=== PATIENT | female | born 1955 | race Two or more races ===

== ENCOUNTER 2024-07-04 21:27 | Emergency (ER) | payer OTHER, MEDICAID, SELFPAY ==
[2024-07-04 21:28] VITALS: BMI 31.1
[2024-07-04 21:45] VITALS: BP 173/83; PULSE 83; RESP 16; TEMP 37; O2SAT 97
--- NOTE | 2024-07-04 21:50 | EDRME_ITS ---
Rapid Medical Screening Exam [facility] Arrival date/time: 07/04/24 21:27 Chief Complaint: Chest Pain Vital signs: Vital Signs Temperature 98.6 F 07/04/24 21:45 Pulse Rate 83 07/04/24 21:45 Respiratory Rate 16 07/04/24 21:45 Blood Pressure 173/83 H 07/04/24 21:45 Pulse Oximetry (%) 97 07/04/24 21:45 Oxygen Delivery Method Room Air 07/04/24 21:45 [facility] Narrative: RUQ pain radiating to right back started today. No n/v. No rash. Hx michele long time ago.
--- NOTE | 2024-07-04 21:51 | EKG_ITS ---
[facility] Test Date: 2024-07-04 Pat Name: FE ALSTON Department: Room: - Gender: Female Speech Language Specialist: : [id number] Requested By: Isaac Zamudio Order Number: [id number] Reading MD: Isaac Zamudio Measurements Intervals [place] Rate: 89 P: 14 MO: 146 QRS: -25 QRSD: 81 T: 12 QT: 337 QTc: 411 Interpretive Statements SINUS RHYTHM BORDERLINE LEFT AXIS DEVIATION [QRS AXIS < -20] LOW QRS VOLTAGE IN PRECORDIAL LEADS [QRS DEFLECTION < 1.0 mV IN CHEST LEADS] PATTERN CONSISTENT WITH PULMONARY DISEASE MODERATE VOLTAGE CRITERIA FOR LVH, CONSIDER NORMAL VARIANT [MEETS CRITERIA IN ONE OF: R(aVL), S(V1), R(V5), R(V5/V6)+S(V1)] No previous ECG available for comparison /store/S0/[id number].pdf
--- NOTE | 2024-07-04 21:53 | XR_ITS ---
Examination: CT abdomen and pelvis without contrast. Coronal 3-D reconstructions. Sagittal 2-D reconstructions. Date and time of exam:July 05, 2024 at 0003 hours Comparison January 13, 2024 INDICATIONS: Right-sided chest and flank pain radiating to the back beginning 2 days ago CTDI: vol (mGy): 9.26 DLP: (mGycm): 490 Technique: Axial images of the abdomen have been obtained, 3 mm slice thickness Intravenous contrast material has not been administered. Low dose protocols were performed. One or more of the following dose reduction techniques were used; automated exposure control, adjustment of the mA and/or KV according to patient size, use of iterative reconstruction technique. Findings: Fatty infiltration throughout the liver, no focal liver or splenic lesion Absent gallbladder No pancreatic or adrenal mass Severe scarring right kidney with 2 mm right renal calculus Mild wall thickening right pelvicalyceal system and right ureter although no hydronephrosis or ureteral calculi Small lymph nodes in the right lower mesentery Normal appendix 29 mm fat-containing umbilical hernia No bowel obstruction Enlarged fundus of the uterus Urinary bladder wall thickening up to 5 mm Advanced degenerative disc disease lower 4 lumbar levels impression: Severe scarring right kidney 2 mm nonobstructing right renal calculus Findings most consistent with right pyelonephritis Consider pelvic sonography to assess enlarged fundus of the uterus
[2024-07-04 22:46] LABS: Collection Type, Urine Clean Catch
[2024-07-04 22:53] LABS: Basophils # (Auto) 0.1 Thou/mm3 (0.0-0.2); Basophils % (Auto) 1 % (0-2.5); Eosinophils # (Auto) 0.1 Thou/mm3 (0.0-0.5); Eosinophils % (Auto) 1 % (0-10); Hematocrit 39.2 % (36.0-46.0); Hemoglobin 13.4 g/dL (12.0-16.0); Immature Granulocytes % (Auto) 0 % (0-0); Immature Granulocytes Auto 0.03 Thou/mm3 (0.00-0.00); Lymphocytes # (Auto) 2.4 Thou/mm3 (1.0-4.8); Lymphocytes % (Auto) 31 % (10-50); Mean Corpuscular HGB Conc 34.2 g/dl (31.0-37.0); Mean Corpuscular Hemoglobin 32.1 pg (25.0-35.0); Mean Corpuscular Volume 94 fL (80-100); Monocytes # (Auto) 0.4 Thou/mm3 (0.0-0.8); Monocytes % (Auto) 5 % (0-12); Neutrophils # (Auto) 4.7 Thou/mm3 (1.8-7.7); Neutrophils % (Auto) 62 % (37-80); Nucleated Red Blood Cell % 0 /100 WBC (0); Platelet Count 350 Thou/mm3 (140-440); RDW Standard Deviation 41.6 fL (36.4-46.3); Red Blood Count 4.18 Miln/mm3 (4.00-5.20); White Blood Count 7.7 Thou/mm3 (3.6-11.0)
[2024-07-04 22:56] LABS: Bilirubin,Urine Negative (Negative); Blood,Urine Negative (Negative); Clarity,Urine Clear (Clear/Hazy); Color,Urine Colorless (Lt Yel-Yel); Glucose, Urine Negative (Negative); Ketones,Urine Negative (Negative); Leukocyte Esterase,Urine Negative (Negative); Nitrite,Urine Negative (Negative); PH,Urine 6.5 (5.0-7.0); Protein,Urine Negative (Neg - Trace); RBC,Urine 2 /hpf (0-3); Specific Gravity,Urine 1.009 (1.001-1.035); Squamous Epithelial Cell,Urine < 1 /hpf (0-5); Urobilinogen,Urine Negative mg/dL (0.0-1.0); WBC,Urine 1 /hpf (0-5)
[2024-07-04 23:14] LABS: Alanine Aminotransferase 23 U/L (10-49); Albumin, Serum 4.6 gm/dL (3.4-4.8); Albumin/Globulin Ratio 1.6 (1.2-2.2); Alkaline Phosphatase 108 U/L (46-116); Anion Gap 9 (7-16); Aspartate Amino Transferase 13 U/L (0-34); BUN/Creatinine Ratio 21 Ratio (12-20); Bilirubin,Total 0.5 mg/dL (0.3-1.2); Blood Urea Nitrogen 17 mg/dL (9-23); Calcium 9.8 mg/dL (8.3-10.6); Calcium (Corrected) 9.8 mg/dL (8.5-10.1); Carbon Dioxide 23.8 mMol/L (20.0-31.0); Chloride 106 mMol/L (98-107); Creatinine (Component) 0.8 mg/dL (0.6-1.3); Estimated Creatinine Clearance 62.3 mL/min (>60); Globulin 2.8 gm/dL (2.3-3.5); Glucose 105 mg/dL (74-106); Lipase 71 U/L (12-53); Osmolality,Calculated 279 (275-295); Potassium 3.3 mMol/L (3.4-5.1); Sodium 139 mMol/L (136-145); Total Protein 7.4 gm/dL (5.7-8.2); Troponin I < 0.002 ng/mL (0.0-0.045); eGFR > 60 See Note
[2024-07-04 23:23] VITALS: BP 126/80; PULSE 80; RESP 20; TEMP 36.9; O2SAT 98
[2024-07-05 01:00] VITALS: BP 115/71; PULSE 79; RESP 20; TEMP 36.9; O2SAT 96
--- NOTE | 2024-07-05 01:08 | PC.NURSE ---
NOTIFIED PT WANTING PAIN MEDICATION
--- NOTE | 2024-07-05 01:25 | PRELIM_ITS ---
CT scan of the abdomen and pelvis without intravenous contrast (axial sections with sagittal and coronal reformats) July 05, 2024 at 0003 hours Clinical History: Right flank pain. Comparison: No prior study is available for comparison. Findings: The gallbladder is surgically absent. The right kidney demonstrates scarring with parenchymal calcification in upper pole. No evidence of renal/ureteric calculus or hydroureteronephrosis. The liver, pancreas, spleen, left kidney and adrenals are unremarkable on this noncontrast study. No evidence of bowel obstruction. A moderate amount of fecal material is present in the colon. The appendix is within normal limits (coronal images 78- 80/169). There is no mesenteric or retroperitoneal adenopathy. The urinary bladder is partially distended and shows mild wall thickening; possibility of cystitis cannot be excluded. The uterus is enlarged and demonstrates lobulated contour, likely related to fibroid. There is no free fluid or free air. A small fat-containing umbilical hernia is present. The bones are osteopenic. Degenerative changes are identified in the spine. There is grade I anterolisthesis of L5 on S1, likely degenerative. Bibasilar dependent atelectasis is present. Please note that evaluation of soft tissue/vascular structures and bowel loops is limited due to absence of IV and oral contrast. Impression: 1. No evidence of renal/ureteric calculus or hydroureteronephrosis. 2. Partially distended urinary bladder with mild wall thickening; possibility of cystitis cannot be excluded. 3. Enlarged uterus as described. Recommend further evaluation with sonography, if clinically indicated. 4. Other findings as described above. Suggest clinical correlation and follow up accordingly. Report Electronically Signed By: Caleb Paz 07/05/2024 1:24:59 AM [EST]
[2024-07-05 03:00] VITALS: BP 157/92; PULSE 81; RESP 16; TEMP 36.9; O2SAT 97
[2024-07-05] MEDS: KETOROLAC INJ 30 MG/ML VIAL 15 MG IVP (03:33)
--- NOTE | 2024-07-29 03:39 | EDNOTE_ITS ---
ED Chest Pain RME/HPI General Chief Complaint: Chest Pain Stated Complaint: RT CHEST PAIN RAD TO RT SIDED BACK Source: patient and RN notes reviewed Arrival date/time: 07/04/24 21:27 Mode of arrival: ambulatory Limitations: no limitations and language barrier RME / HPI RME / HPI narrative: RUQ pain radiating to right back started today. No n/v. No rash. Hx michele long time ago. MD complaint: chest pain Onset (ago): day(s) (2) Duration: intermittent Pain location: left chest Severity: mild Severity scale (1-10): 2 Quality: tightness Pain radiation: none Relieving factors: nothing Exacerbating factors: nothing Associated symptoms: nausea Treatments prior to arrival chest pain: none Related Data Previous Rx's ?Medication ?Instructions ?Recorded TRIMETHOPRIM/SULFAMETHOXAZOLE 1 tab PO Q12HR Infection #14 tabs 03/27/16 (Bactrim Ds) Allergies Allergy/AdvReac Type Severity Reaction Status Date / Time codeine Allergy Mild FAINT Verified 07/04/24 21:31 Review of Systems Review of Systems Systems Reviewed: All systems reviewed, normal except as documented Constitutional Constitutional: Reports system reviewed and no additional complaints, except as documented and Denies fever(s) Eyes Eyes: Reports system reviewed and no additional complaints, except as documented ENT Ears, Nose, Mouth, and Throat: Reports system reviewed and no additional complaints, except as documented Respiratory Respiratory: Reports system reviewed and no additional complaints, except as documented and Denies wheezing Gastrointestinal Gastrointestinal: Reports system reviewed and no additional complaints, except as documented, Denies abdominal pain, Denies nausea and Denies vomiting Musculoskeletal Musculoskeletal: Reports system reviewed and no additional complaints, except as documented, Denies abnormal gait and Denies arthralgias Integumentary/Breasts Skin/Breast: Reports system reviewed and no additional complaints, except as documented and Denies rash Neurologic Neurologic: Reports system reviewed and no additional complaints, except as documented and Denies abnormal gait Psychiatric Psychiatric: Reports system reviewed and no additional complaints, except as documented Allergic/Immunologic Allergic/Immunologic: Denies wheezing Past Medical History Past Medical History NEUROLOGIC: Negative Neurological Disorders CARDIAC: Positive Hypercholesterolemia and Hypertension; Negative Congestive Heart Failure RESPIRATORY: Negative Chronic Obstructive Pulmonary Disease (COPD) GASTROINTESTINAL: Negative Gastrointestinal Disorders GENITOURINARY: Negative Genitourinary Disorders or Renal Disease ENDOCRINE: Negative Diabetes Mellitus Type 1 or Diabetes Mellitus Type 2 Social History SMOKING STATUS: Never smoker ED Exam General Limitations: Present no limitations and language barrier General appearance: Present alert and in no apparent distress Head Head exam: Present atraumatic Eye Eye exam: Present normal appearance, PERRL and EOMI ENT ENT exam: Present normal exam, normal oropharynx and mucous membranes moist Neck Neck exam: Present normal inspection, full ROM and trachea midline Chest Chest inspection: Present normal inspection and symmetric chest wall rise Respiratory Respiratory exam: Present normal lung sounds bilaterally Cardiovascular Cardiovascular exam: Present regular rate, normal rhythm and normal heart sounds Abdominal Exam Abdominal exam: Present soft and normal bowel sounds Extremities Exam Extremities exam: Present normal inspection and full ROM Back Exam Back exam: Present normal inspection and full ROM Neurological Exam Neurological exam: Present alert, oriented X3 and CN II-XII intact Psychiatric Psychiatric exam: Present normal affect and normal mood Skin Skin exam: Present warm, dry, intact and normal color Course Quality Measures none Orders Category Date Time Status Steam Generating Powerplant Mechanic Q4H START 00 Care 07/04/24 22:20 Completed EKG (ED ONLY) *Do not use* NOW Care 07/04/24 21:51 Completed Insert IV NOW Care 07/04/24 22:[address] abdomen pelvis wo con Stat Exams 07/04/24 21:53 Completed EKG (ED Only) Stat Exams 07/04/24 21:51 Draft CBC Stat Lab 07/04/24 22:35 Completed CMP [Comprehensive Metabolic Panel] Stat Lab 07/04/24 22:35 Completed Lipase Stat Lab 07/04/24 22:35 Completed Troponin I Stat Lab 07/04/24 22:35 Completed UA [Urinalysis] Stat Lab 07/04/24 22:09 Completed Ketorolac Inj [Toradol Inj] Med 07/05/24 03:00 Discontinued 15 mg IVP X1 ONE Vital Signs Vital signs: Vital Signs Temperature 98.6 F 07/04/24 21:45 Pulse Rate 83 07/04/24 21:45 Respiratory Rate 16 07/04/24 21:45 Blood Pressure 173/83 H 07/04/24 21:45 Pulse Oximetry (%) 97 07/04/24 21:45 Oxygen Delivery Method Room Air 07/04/24 21:45 Chest Pain Patient data External records reviewed:: [facility] previous records Clinical information provided by:: patient Social determinants that could affect healthcare access:: none Patient has the following chronic illnesses:: none How is presenting disease/condition affected by chronic disease/condition?: no chronic disease Evaluation data The following diagnostics were reviewed and interpreted by me:: lab results, radiology exam(s) and EKG tracing(s) Lab and/or radiology exams considered but not ordered:: None Interpretation Summary: None Medications / Prescriptions Medications or Prescriptions considered but not ordered:: None Medication administrations:: Medication Administration History Discontinued Medications Ketorolac Tromethamine (Ketorolac Inj 30 Mg/Ml Vial) 15 mg IVP X1 ONE Stop: 07/05/24 03:01 Last Admin: 07/05/24 03:33 Dose: 15 mg Documented By: MAYI none Consultations Consultation(s) initiated? (list below): No Diagnosis Chest Pain Differential Diagnosis: atypical chest pain, biliary colic and other Most likely diagnosis given after review of the tests above:: Atypical chest pain Admission Indicated Admission indicated?: not indicated Admission Request Was there a request for admission?: No Disposition Plan Disposition Plan: Discharge Discharge Attestation Discharge Attestation: The patient and all family members were given an opportunity to ask questions and understood the discharge instructions. Discharge instructions specifically effects, indications for sooner follow up or return to the emergency department, and the expected course of current diagnosis. Patient condition: Stable Discharge Plan Plan Patient Disposition: HOME (Self Care) Patient condition on transfer: Stable Prescriptions/Referrals Prescriptions/Med Rec: No Action TRIMETHOPRIM/SULFAMETHOXAZOLE (Bactrim Ds) 1 TAB tablet 1 tab PO Q12HR Qty: 14 0RF Referrals: No Primary/Family,Physician [Primary Care Provider] - In 1 week Problem List Clinical Impression: Abdominal pain Patient/Caregiver Discharge Instructions Diet Instructions: Avoid greasy or fatty foods. Education Materials: Abdominal Pain Additional Instructions: General Adult Discharge Instructions(Z[place]ian) Usted lujan sido dado de susan del [facility] sin embargo hay algunas cosas que debe hacer para asegurarse de que usted continue recibiendo el cuidado adecuado. Por favor janett las siguientes instrucciones con atenci?n: 1. Si es que le dieron alguna prescripci?n (medicamento), asegurese de ir a la farmacia de holden preferencia, llenar el medicamento y tomarlo conforme a las instrucciones. 2. Leas las instrucciones de susan con mucho cuidado dado que contienen informaci?n importante para holden peggy y cuidado. 3. REGRESE AL [facility]ENTO DE EMERGENCIA SI tiene alg?n tipo de problema o preocupaci?n. [place]oggon incluye pawan no esta limitado a fiebre, mucho dolor abdominal, dolor de pecho, mucho dolor de richard, falta de aire, sangrado incontrolable, nauseas o vomitos incontrolables, inhabilidad de tolerar alimentos, o cualquier otro tipo de condici?n que le amol cuestionar holden peggy. 4. Asegurese de seguir con holden medico primario (tambien llamado medico de bashir) o con el medico especialista que le indicaron al momento del susan en 3 a 5 negron dado que esta es la mejor manera de asegurar que aneta recibiendo el mejor cuidado medico. 5. Si es que tiene un telefono inteligente (smartphone) revise la pagina web o aplicaci?n GoodRx antes de pagar por george prescripciones (medicinas) dado que asi podr?a encontrar un cup?n para que george medicinas pal menos costosas. El servicio es gratuito. Le agradecemos holden visita el andres de hoy y esperamos que holden peggy mejore. Print Language: Z[place]ian Stand Alone Forms: Dorothy Award Info., Patient Portal Info Letter
== END 2024-07-05 03:38 | disposition home or self-care (01) ==
PROVIDERS: Physician Assistant; Emergency Provider Emergency Medicine
DX: R10.11 Right upper quadrant pain (principal); R07.89 Other chest pain; R94.31 Abnormal electrocardiogram [ECG] [EKG]; E78.00 Pure hypercholesterolemia, unspecified; I10 Essential (primary) hypertension
CPT/HCPCS: 36415; 74176; 80053; 81001; 83690; 84484; 85025; 93005; 99284; J1885

== ENCOUNTER → 2024-11-02 | Outpatient (CLI) | payer OTHER, MEDICAID, SELFPAY ==
--- NOTE | 2024-11-02 09:00 | XR_ITS ---
Examination: Breast ultrasound, unilateral, right Date and time of exam: October 27 08/18/2024, 0937 hours INDICATIONS: Bilateral wrist sonography October 24, 2023 no cystic or solid mass, mammogram October 24, 2023 5 mm nodule right breast MLO view Technique: Real-time salas scale ultrasonographic imaging performed right breast including all 4 quadrants as well as nipple retroareolar and axillary region. Findings: 9:00 intramammary lymph node 5 x 4 mm IMPRESSION: BI-RADS Category 2: Benign findings
--- NOTE | 2024-11-02 09:30 | XR_ITS ---
Examination: Diagnostic digital mammography, unilateral, right Computer aided detection 3-D breast Tomosynthesis, unilateral Date and time of exam: 11/02/2024, 9:48 AM Comparisons: April 2015 through October 2023 Indications: Follow-up evaluation of right breast nodule seen on prior mammogram. Technique: Nonmagnified MLO, CC views of the right breast have been obtained, reconstructed from 3-D Tomosynthesis images. R2 computer aided detection program utilized for evaluation of suspicious masses and/or abnormal calcifications. 3-D Tomosynthesis images obtained. Technologist: Findings: There are scattered areas of fibroglandular density. Stable benign-appearing oval circumscribed mass right upper outer quadrant. Otherwise, no evidence of abnormal masses or suspicious calcifications. Impression: BI-RADS category 2: Benign findings right breast. Recommend return to yearly screening mammography of the right breast. Please note patient is overdue for left breast screening mammogram. Left breast screening mammogram is recommended.
== END | disposition home or self-care (01) ==
LOC: CDIM 09:24
PROVIDERS: Referring Provider Family Medicine; Visit Provider Family Medicine
DX: R92.321 Mammographic fibroglandular density, right breast (principal)
CPT/HCPCS: 76641; 77061; 77065; G0279